=== PATIENT | female | born 1970 | race Hispanic/Latino ===

== ENCOUNTER 2019-05-23 19:05 | Emergency (ER) | payer SELFPAY ==
[2019-05-23] MEDS ORDERED: DIPHENHYDRAMINE 50 MG/ML VIAL ONE (19:50)
[2019-05-23] MEDS ORDERED: METOCLOPRAMIDE 10 MG/2mL INJ ONE (19:50)
[2019-05-23] MEDS ORDERED: AMLODIPINE 5 MG TAB ONE (19:50)
[2019-05-23] MEDS ORDERED: KETOROLAC 30 MG/ML INJ ONE (19:51)
[2019-05-23] MEDS ORDERED: NA CHLORIDE 0.9% 1,000 ML ONE (19:51)
[2019-05-23 20:12] LABS: Absolute Lymphocytes (CBC) 1.5 K/uL (0.7-4.9); Basophils % 0.3 % (0-1.3); Lymphocytes % 15.7 % (15.3-44.8); MPV 10.3 fL (7.6-11.3); RBC Red Blood Cell Count 4.91 M/uL (3.86-4.86)
--- NOTE | 2019-05-23 20:12 | RAD REPORT ---
EXAM DESCRIPTION: RAD - Chest Single View - 05/23/2019 7:53 pm CLINICAL HISTORY: Abdominal pain, vomiting, shortness of breath COMPARISON: None. TECHNIQUE: AP portable chest image was obtained 1950 hours . FINDINGS: Lungs are clear. Heart and vasculature are normal. No measurable pleural effusion and no p neumothorax. No acute bony abnormality seen. No acute aortic findings suspected. IMPRESSION: No acute cardiopulmonary process.
--- NOTE | 2019-05-23 20:14 | RAD REPORT ---
EXAM DESCRIPTION: CT - Head Brain Wo Cont - 05/23/2019 8:06 pm CLINICAL HISTORY: High Blood pressure, headache, vomiting. COMPARISON: None. TECHNIQUE: Axial 5 mm thick images of the head were obtained without IV contrast. All CT scans are performed using dose optimization technique as appropriate and may include automated exposure control or mA/KV adjustment according to patient size. FINDINGS: No intracranial hemorrhage, mass, edema or shift of mid-line structures. No acute infarcti on changes seen. No abnormal extra-axial fluid collections. Ventricles are normal. Mastoid air cells and visualized portions of the paranasal sinuses are clear. No acute bony findings. IMPRESSION: Negative non-contrast CT head examination.
[2019-05-23 20:28] LABS: ALT/SGPT 35 U/L (12-78); AST/SGOT 22 U/L (15-37); Alkaline Phosphatase 40 U/L (45-117); BUN Blood Urea Nitrogen 13 mg/dL (7-18); Bicarbonate 25 mmol/L (21-32); Bilirubin Direct 0.1 mg/dL (0-0.2); Bilirubin Total 0.6 mg/dL (0.2-1.0); Glucose Level 125 mg/dL (74-106); Magnesium 1.8 mg/dL (1.8-2.4); NT PRO-BNP 28 pg/mL (<125); Potassium 3.3 mmol/L (3.5-5.1); Protime INR 1.06; Sodium Level 138 mmol/L (136-145); Troponin (Emerg Dept Use Only) < 0.02 ng/mL (0.0-0.045)
--- NOTE | 2019-05-23 21:17 | ER ---
Nurse's Notes [facility] Name: Kyara Bowman Age: 49 yrs Sex: Female : 1970 Arrival Date: 05/23/2019 Time: 19:08 Bed 30 Private MD: Diagnosis: Essential (primary) hypertension Presentation: 05/23 19:21 Presenting complaint: Patient states: I think my blood pressure is high and I have had tl1 a headache and vomiting since yesterday. I have vomited 7 times today with diarrhea 4 times. Transition of care: patient was not received from another setting of care. Onset of symptoms was May 22, 2019. Risk Assessment: Do you want to hurt yourself or someone else? Patient reports no desire to harm self or others. Initial Sepsis Screen: Does the patient meet any 2 criteria? No. Patient's initial sepsis screen is negative. Does the patient have a suspected source of infection? No. Patient's initial sepsis screen is negative. Care prior to arrival: None. 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 - Social history:: Smoking status: Patient/guardian denies using tobacco, never smoked, Patient/guardian denies using alcohol, street drugs, Patient/guardian denies using The patient lives with family. - Ebola Screening: : Patient negative for fever greater than or equal to 101.5 degrees Fahrenheit, and additional compatible Ebola Virus Disease symptoms Patient denies exposure to infectious person Patient denies travel to an Ebola-affected area in the 21 days before illness onset. - Family history:: not pertinent. Screenin:56 Abuse screen: Denies threats or abuse. Denies injuries from another. Nutritional rv screening: No deficits noted. Tuberculosis screening: No symptoms or risk factors identified. Fall Risk None identified. Assessment: 19:55 General: Appears in no apparent distress. uncomfortable, Behavior is calm, cooperative. rv Pain: Complains of pain in head. Neuro: Level of Consciousness is awake, alert, obeys commands, Oriented to person, place, time, situation, Reports headache in entire. Cardiovascular: Patient's skin is warm and dry. Respiratory: Airway is patent. GI: No signs and/or symptoms were reported involving the gastrointestinal system. : No signs and/or symptoms were reported regarding the genitourinary system. EENT: No signs and/or symptoms were reported regarding the EENT system. Derm: Skin is intact. Musculoskeletal: No signs and/or symptoms reported regarding the musculoskeletal system. 21:47 Reassessment: Patient appears in no apparent distress at this time. Patient and/or rv family updated on plan of care and expected duration. Pain level reassessed. Patient is alert, oriented x 3, equal unlabored respirations, skin warm/dry/pink. patient appears to be more comfortable after the medication. diagnostic reports explained by Dr Santos to the patient and family. discharged with prescriptions. Vital Signs: 19:25 BP 191 / 107; Pulse 89; Resp 18; Temp 98; Pulse Ox 100% ; Weight 86.18 kg; Height 5 ft. tl1 2 in. (157.48 cm); Pain 9/10; 20:48 BP 153 / 68; Pulse 76; Resp 20; Pulse Ox 100% on R/A; jp3 21:51 BP 155 / 86; Pulse 81; Resp 16; Pulse Ox 100% on R/A; rv 19:25 Body Mass Index 34.75 (86.18 kg, 157.48 cm) tl1 ED Course: 19:08 Patient arrived in ED. cl3 19:23 Triage completed. tl1 19:26 Arm band placed on left wrist. tl1 19:29 Cherie Santos MD is Attending Physician. ma2 19:47 Jonny Alvarez RN is Primary Nurse. rv 19:47 No provider procedures requiring assistance completed. Inserted saline lock: 20 gauge mg2 in left forearm, using aseptic technique. Blood collected. 19:51 XRAY Chest (1 view) In Process Unspecified. EDMS 19:57 Patient has correct armband on for positive identification. Bed in low position. Call rv light in reach. Side rails up X 1. Pulse ox on. NIBP on. 20:06 CT completed. Patient tolerated procedure well. Patient moved to CT. Patient moved back va from CT. 20:08 CT Head Brain wo Cont In Process Unspecified. EDMS 20:29 Basic Metabolic Panel Sent. rv 20:29 CBC with Diff Sent. rv 20:42 Warm blanket given. Verbal reassurance given. night monitor on. jp3 20:42 EKG done, by ED staff, reviewed by Cherie Santos MD. Patient maintains SpO2 jp3 saturation greater than 95% on room air. 21:29 Urine collected: clean catch specimen, clear, ricardo colored. rv 21:52 IV discontinued, intact, bleeding controlled, No redness/swelling at site. Pressure rv dressing applied. Administered Medications: 19:54 Drug: Norvasc 5 mg Route: PO; rv 21:00 Follow up: Response: No adverse reaction; Marked relief of symptoms; Blood pressure is rv lowered 20:24 Drug: Reglan 10 mg Route: IVP; Site: left antecubital; rv 20:59 Follow up: Response: No adverse reaction; Marked relief of symptoms rv 20:24 Drug: TORadol 30 mg Route: IVP; Site: left antecubital; rv 20:59 Follow up: Response: No adverse reaction; Marked relief of symptoms rv 20:24 Drug: Benadryl 50 mg Route: IVP; Site: left antecubital; rv 20:59 Follow up: Response: No adverse reaction; Marked relief of symptoms rv 20:25 Drug: NS 0.9% 1000 ml Route: IV; Rate: 1 bolus; Site: left antecubital; rv 20:59 Follow up: IV Status: Completed infusion rv Outcome: 21:16 Discharge ordered by . cain 21:52 Discharged to home ambulatory, with family. rv 21:52 Condition: good 21:52 Discharge instructions given to patient, Instructed on discharge instructions, follow up and referral plans. medication usage, Demonstrated understanding of instructions, follow-up care, medications, Prescriptions given X 2. 21:52 Patient left the ED. rv Signatures: Dispatcher [employer] EDMS Laquita Olmstead, RN RN tl1 Genaro Reardon Mohammad, MD MD ma2 Doug Campos RN RN mg2 Jonny Alvarez RN RN rv Neal Quintanilla jp3 Antoine, Charde cl3
--- NOTE | 2019-05-23 21:17 | EDPHYS ---
Physician Documentation [facility] Name: Kyara Bowman Age: 49 yrs Sex: Female : 1970 Arrival Date: 05/23/2019 Time: 19:08 Bed 30 Private MD: ED Physician Cherie Santos HPI: 05/23 20:27 This 49 yrs old Female presents to ER via Ambulatory with complaints of High ak2 Blood Pressure. 20:27 The patient has elevated blood pressure and discovered this at [address], at home. Onset: The symptoms/episode began/occurred gradually, 1 day(s) ago. Associated signs and symptoms: Pertinent positives: Pertinent negatives: dizziness, headache, nausea, visual changes. Severity of symptoms: At its worst the blood pressure was moderate, in the emergency department the blood pressure is unchanged. The patient has experienced similar episodes in the past. 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 - Social history:: Smoking status: Patient/guardian denies using tobacco, never smoked, Patient/guardian denies using alcohol, street drugs, Patient/guardian denies using The patient lives with family. - Ebola Screening: : Patient negative for fever greater than or equal to 101.5 degrees Fahrenheit, and additional compatible Ebola Virus Disease symptoms Patient denies exposure to infectious person Patient denies travel to an Ebola-affected area in the 21 days before illness onset. - Family history:: not pertinent. ROS: 20:27 Constitutional: Negative for fever, chills, and weight loss. ma2 20:27 All other systems are negative. Exam: 20:27 Constitutional: This is a well developed, well nourished patient who is awake, alert, ma2 and in no acute distress. Chest/axilla: Normal chest wall appearance and motion. Nontender with no deformity. No lesions are appreciated. Cardiovascular: Regular rate and rhythm with a normal S1 and S2. No gallops, murmurs, or rubs. Normal PMI, no JVD. No pulse deficits. Respiratory: Lungs have equal breath sounds bilaterally, clear to auscultation and percussion. No rales, rhonchi or wheezes noted. No increased work of breathing, no retractions or nasal flaring. Abdomen/GI: Soft, non-tender, with normal bowel sounds. No distension or tympany. No guarding or rebound. No evidence of tenderness throughout. Skin: Warm, dry with normal turgor. Normal color with no rashes, no lesions, and no evidence of cellulitis. MS/ Extremity: Pulses equal, no cyanosis. Neurovascular intact. Full, normal range of motion. Neuro: Awake and alert, GCS 15, oriented to person, place, time, and situation. Cranial nerves II-XII grossly intact. Motor strength 5/5 in all extremities. Sensory grossly intact. Cerebellar exam normal. Normal gait. Vital Signs: 19:25 BP 191 / 107; Pulse 89; Resp 18; Temp 98; Pulse Ox 100% ; Weight 86.18 kg; Height 5 ft. tl1 2 in. (157.48 cm); Pain 9/10; 20:48 BP 153 / 68; Pulse 76; Resp 20; Pulse Ox 100% on R/A; jp3 21:51 BP 155 / 86; Pulse 81; Resp 16; Pulse Ox 100% on R/A; rv 19:25 Body Mass Index 34.75 (86.18 kg, 157.48 cm) tl1 MDM: 19:29 Patient medically screened. ak2 20:27 Differential diagnosis: Malignant HTN, intracerebral hemorrhage. Data reviewed: [facility] signs, nurses notes. Counseling: I had a detailed discussion with the patient and/or guardian regarding: the historical points, exam findings, and any diagnostic results supporting the discharge/admit diagnosis, the presence of at least one elevated blood pressure reading (>120/80) during this emergency department visit, the need for outpatient follow up. ED course: essential hypertension with no end organ damag. 21:16 Response to treatment: the patient's symptoms have resolved after treatment. ak2 05/23 19:30 Order name: Basic Metabolic Panel ak2 05/23 19:30 Order name: CBC with Diff ak2 05/23 19:30 Order name: LFT's; Complete Time: 20:40 ma2 05/23 19:30 Order name: Magnesium; Complete Time: 20:40 ma2 05/23 19:30 Order name: NT PRO-BNP; Complete Time: 20:40 ma2 05/23 19:30 Order name: PT-INR; Complete Time: 20:40 ma2 05/23 19:30 Order name: Troponin (emerg Dept Use Only); Complete Time: 20:40 ma2 05/23 19:30 Order name: XRAY Chest (1 view); Complete Time: 20:40 ma2 05/23 19:30 Order name: Basic Metabolic Panel; Complete Time: 20:40 EDMS 05/23 19:30 Order name: CBC with Automated Diff; Complete Time: 20:40 EDMS 05/23 19:36 Order name: CT Head Brain wo Cont; Complete Time: 20:40 ma2 05/23 21:33 Order name: Urine Dipstick--Ancillary (enter results) mn 05/23 21:33 Order name: Urine --Ancillary (enter results) mn 05/23 19:30 Order name: EKG; Complete Time: 19:30 ma2 05/23 19:30 Order name: Cardiac monitoring; Complete Time: 19:47 ma2 05/23 19:30 Order name: EKG - Nurse/Tech; Complete Time: 20:43 ma2 05/23 19:30 Order name: IV Saline Lock; Complete Time: 19:47 ma2 05/23 19:30 Order name: Labs collected and sent; Complete Time: 19:46 ma2 05/23 19:30 Order name: O2 Per Protocol; Complete Time: 19:46 ma2 05/23 19:30 Order name: O2 Sat Monitoring; Complete Time: 19:47 ma2 05/23 19:36 Order name: Urine Dipstick-Ancillary (obtain specimen); Complete Time: 21:29 ma2 Administered Medications: 19:54 Drug: Norvasc 5 mg Route: PO; rv 21:00 Follow up: Response: No adverse reaction; Marked relief of symptoms; Blood pressure is rv lowered 20:24 Drug: Reglan 10 mg Route: IVP; Site: left antecubital; rv 20:59 Follow up: Response: No adverse reaction; Marked relief of symptoms rv 20:24 Drug: TORadol 30 mg Route: IVP; Site: left antecubital; rv 20:59 Follow up: Response: No adverse reaction; Marked relief of symptoms rv 20:24 Drug: Benadryl 50 mg Route: IVP; Site: left antecubital; rv 20:59 Follow up: Response: No adverse reaction; Marked relief of symptoms rv 20:25 Drug: NS 0.9% 1000 ml Route: IV; Rate: 1 bolus; Site: left antecubital; rv 20:59 Follow up: IV Status: Completed infusion rv Disposition: 05/23/19 21:16 Discharged to Home. Impression: Essential (primary) hypertension. - Condition is Stable. - Discharge Instructions: Hypertension. - Prescriptions for Norvasc 5 mg Oral Tablet - take 1 tablet by ORAL route once daily; 20 tablet. Reglan 10 mg Oral Tablet - take 1 tablet by ORAL route every 6 hours . take 30 minutes before meals and at bedtime; 100 tablet. - Medication Reconciliation Form, Thank You Letter, Antibiotic Education, Prescription Opioid Use form. - Follow up: Private Physician; When: Tomorrow; Reason: Continuance of care. Signatures: Dispatcher [employer] EDLaquita Brooks RN RN tl1 Cherie Santos MD MD ma2 Jonny Alvarez RN RN rv Corrections: (The following items were deleted from the chart) 21:52 21:16 05/23/2019 21:16 Discharged to Home. Impression: Essential (primary) rv hypertension. Condition is Stable. Prescriptions for Norvasc 5 mg Oral Tablet - take 1 tablet by ORAL route once daily; 20 tablet, Reglan 10 mg Oral Tablet - take 1 tablet by ORAL route every 6 hours . take 30 minutes before meals and at bedtime; 100 tablet. and Forms are Medication Reconciliation Form, Thank You Letter, Antibiotic Education, Prescription Opioid Use. Follow up: Private Physician; When: Tomorrow; Reason: Continuance of care. ma2
[2019-05-23 21:36] LABS: Urine Blood 3+ (NEG); Urine Glucose NEGATIVE (NEG); Urine Protein 2+ (NEG); Urine Specific Gravity 1.025 (1.005-1.030)
--- NOTE | 2019-05-24 08:46 | EKG ---
Test Date: 2019-05-23 Test Time: 20:35:39 [employer] Electric[employer]: CASEY MEASUREMENT RESULTS: Intervals: Rate: 78 MD: 130 QRSD: 100 QT: 416 QTc: 474 [place]: P: 58 MD: 130 QRS: 28 T: 30 INTERPRETIVE STATEMENTS: Normal sinus rhythm Incomplete right bundle branch block Cannot rule out Anterior infarct, age undetermined Abnormal ECG No previous ECG available for comparison Electronically Signed On 05-24-19 08:45:25 RN HEMODIALYSIS by Mark Adair
== END 2019-05-23 21:52 | disposition home or self-care (01) ==
LOC: ER 19:05
DX: I10 Essential (primary) hypertension (principal); E11.9 Type 2 diabetes mellitus without complications
CPT/HCPCS: 36415; 70450; 71045; 80048; 80076; 81003; 81025; 83735; 83880; 84484; 85025; 85610; 93005; 96361; 96374; 96375; 99285; J1200; J2765; J7030